=== PATIENT | male | born 1975 | race Caucasian/White ===

== ENCOUNTER 2024-12-11 11:31 | Emergency (ER) | payer OTHER, SELFPAY ==
[2024-12-11] VITALS (14 sets, daily range): BP systolic 126–166; BP diastolic 78–103; BMI 23.1
[2024-12-11] MEDS: DILAUDID 1 MG IV (11:44)
[2024-12-11] MEDS: ZOFRAN 4 MG IV (11:46)
--- NOTE | 2024-12-11 11:54 | ED.MUSCINJ ---
HPI-Injury
General
Chief Complaint: Musculo-Skeletal Complaint
Source: patient and spouse
Exam Limitations: none
Time Seen by Provider: 12/11/24 11:40
Nursing documentation reviewed up to this point in time: agreed with
History of Present Illness-Injury
Initial Injury comments:
Note:
CHIEF COMPLAINT(S)
Right shoulder pain with suspected dislocation.
HISTORY OF PRESENT ILLNESS
The patient is a 49-year-old male who presented with complaints of right shoulder pain. He reports that the pain began after a recent incident where he was stacking a tarp and experienced an injury to his shoulder. The patient has a history of
previous shoulder dislocation, which occurred approximately 20 to 30 years ago. During this current episode, he attempted self-reduction of the shoulder, without success. The injury occurred earlier today while he was engaged in physical work.
SOCIAL HISTORY
The patient occasionally uses marijuana.
PHYSICAL EXAM
- General: Patient appears to be in mild distress due to shoulder pain.
- Musculoskeletal: Normal range of motion in all extremities except the right shoulder. There is an anterior deformity at the right glenohumeral joint. The patient is holding the right arm due to pain.
PLAN
The plan is to attempt shoulder reduction. If non-sedative manipulation is unsuccessful, proceed with sedation to facilitate reduction of the shoulder dislocation.
DIFFERENTIAL DIAGNOSIS
The Differential Diagnosis includes, in no particular order and is not limited to:
1. Anterior shoulder dislocation
2. Rotator cuff tear
3. Shoulder sprain
4. Glenoid labrum injury
5. Acromioclavicular joint separation
6. Clavicle fracture
7. Proximal humerus fracture
8. Biceps tendon rupture
9. Shoulder osteoarthritis
10. Subacromial bursitis
CARE-UPDATE
12/11/24 - 12:54
Patient was sedated with 100 mg of propofol and tolerated the procedure well. Post-procedure, the reduction appears satisfactory as confirmed by a post-reduction x-ray, indicating successful alignment. Neural structures remain unaffected
post-procedure.
Disposition:
SUMMARY OF ENCOUNTER
The patient, a 49-year-old male, presented to the emergency department with complaints of right shoulder pain following an injury sustained while stacking a tarp. He has a history of shoulder dislocation approximately 20-30 years prior. During this
incident, self-reduction attempts were unsuccessful. Physical examination showed an anterior deformity at the right glenohumeral joint, indicative of an anterior shoulder dislocation. The patient was sedated with 100 mg of propofol, following which
a successful shoulder reduction was achieved, as confirmed by a post-reduction X-ray.
DISPOSITION
Discharge.
ASSESSMENT
Anterior shoulder dislocation.
EMERGENCY TREATMENTS ADMINISTERED
Sedation with 100 mg of propofol.
REASSESSMENT
Post-reduction, X-ray confirmed satisfactory alignment, neural structures remained unaffected, and the patient tolerated the procedure well.
PLAN
Refer patient for follow-up with orthopedics to ensure proper recovery and management of the shoulder dislocation.
INDEPENDENT REVIEW OF LABS AND INTERPRETATION OF TESTS
My independent review of the X-ray confirms satisfactory alignment post-reduction of the shoulder dislocation.
PROCEDURES
Sedation with propofol and closed reduction of right shoulder dislocation.
PATIENT EDUCATION AND COUNSELING
The patient was educated about the potential for further injury and instructed on the importance of follow-up with orthopedics to prevent future dislocations. The patient was advised to avoid shoulder strain and to follow up for physical therapy as
needed.
FOLLOW-UP INSTRUCTIONS
The patient should follow up with orthopedics for post-reduction care and management.
MEDICAL DECISION MAKING
-Complexity of Data Reviewed: Chronic conditions affecting care due to the patients past history of shoulder dislocation. Differential diagnoses considered were anterior shoulder dislocation, rotator cuff tear, shoulder sprain, glenoid labrum
injury, AC joint separation, clavicle fracture, proximal humerus fracture, biceps tendon rupture, shoulder osteoarthritis, and subacromial bursitis.
-Data:
Category 1
My independent interpretation of X-ray confirmed successful alignment post reduction.
-Risk:
Consideration of Admission/Observation: Escalation of care including admission/observation was considered given the complexity and risk of the patients presenting complaint. However, ultimately I feel the patient is safe for outpatient management
with close follow-up. Reasoning: Work-up reassuring, does not reveal any acute life/organ threatening processes, patients symptoms well controlled upon reevaluation, reexamination is reassuring, vitals are stable, patient agreeable with discharge,
reliable for follow-up.
DIAGNOSIS
Anterior shoulder dislocation (ICD-10: S43.01XA).
Phy Exam
Physical Exam
Physical Exam:
.
Injury Course
Orders/Labs/Results
Orders:
Orders
12/11/24 11:43
HYDROmorphone [Dilaudid] 1 mg .ROUTE .STK-MED ONE
12/11/24 11:44
HYDROmorphone [Dilaudid] 1 mg IV NOW STA
12/11/24 11:45
Ondansetron Injectable [Zofran] 4 mg .ROUTE .STK-MED ONE
12/11/24 11:46
Ondansetron Injectable [Zofran] 4 mg IV NOW STA
12/11/24 11:53
Shoulder, Right 2 Views [CR Shoulder - Right Min 2 View] Urgent
Comment:
Reason For Exam: right shoulder pain, deformity
12/11/24 11:56
ASA Classification Routine
Propofol [Diprivan] 100 mg IV NOW STA
12/11/24 12:39
CR Shoulder - Right Min 2 View Urgent
Comment: portable
Reason For Exam: Post reduction
Procedures
Moderate Sedation
ASA Risk Score: Class I
Chart and allergies reviewed: Yes
Consent for anesthesia obtained: Yes
Time out completed (validating right patient & procedure): Yes
Moderate Sedation Start Time(when first medication is given): 12:35
History of difficult intubation: Yes
Airway free of obstruction: Yes
Patient has a gag reflex: Yes
Patient is able to open mouth: Yes
Patient has no dentures: Yes
Patient has no loose teeth: Yes
Medication administered by Provider during Moderate Sedation: IV Propofol (mg)
Total dose administered: 100
Time drug administered: 12:35
Moderate Sedation Procedure End Time: 12:45
Joint/Fracture Reduction
Right Anterior Shoulder:
Indication for procedure:: dislocation
Procedure completed by: Angie/Kavya
Consent form signed: Yes
Joint reduced: with anesthesia sedation
Anesthesia/sedation: Moderate sedation
Injury was: closed
Further treatement: needs re-check only
Post reduction exam: stable
Capillary Refill: normal
Normal distal neurovascular exam?: Yes
Peripheral Pulses: radial (right): 4+ and femoral (left): 4+
*Pulse Oximetry
SaO2: 98
Oxygen Mode of Delivery: Room air
Patient hypoxic: no
*Critical Care Note
Total Time (30-74mins, 75-104mins- exclusive of procedures): Not Applicable
ED Attending Note
-
Portions of this chart may have been created with voice recognition software.� Occasional wrong word or��sound alike� substitutions may have occurred due to the inherent limitations of voice recognition software.
Discharge Plan
Departure
Patient Disposition: Home (Routine Discharge)
Date of Disposition: 12/11/24
Time of Disposition: 13:01
Patient with high blood pressure during this ER visit?: Yes
Condition: Good
Discharge Problem:
Anterior dislocation of right shoulder
Instructions: Shoulder Dislocation (DC), MODERATE SEDATION ADULT, BLOOD PRESSURE
Referrals:
Mariah Chowdary DO [Family Provider, Family Practice]
Edwardo Barney MD [Active, Orthopedics] - Call in 1-3 days for appt
Interventions
Interventions:
*Risk Screen - Suicide Last Done: 12/11/24 11:33
*General Assessment Last Done: 12/11/24 11:33
*Neglect/Abuse Screening Last Done: 12/11/24 11:33
*ED- Fall Risk Assessment Last Done: 12/11/24 11:33
*ED COVID-19 Vaccine History Last Done: 12/11/24 11:33
ED-Musculoskeletal Assessment Last Done: 12/11/24 11:33
Discharge Date and Time
Print Language: [place]
== END 2024-12-11 13:30 | disposition home or self-care (01) ==
LOC: EMR 11:31
PROVIDERS: EMERGENCY PHYSICIAN Emergency Medicine; FAMILY PHYSICIAN Family Medicine
DX: S43.014A Anterior dislocation of right humerus, initial encounter (principal); X58.XXXA Exposure to other specified factors, initial encounter; F12.90 Cannabis use, unspecified, uncomplicated
CPT/HCPCS: 99283; 23650; 99152; 96374; 96375; 73030

== ENCOUNTER → 2025-02-05 13:48 | Outpatient (REF) | payer OTHER, SELFPAY | LOC: RAD 13:48 | PROVIDERS: ATTENDING PHYSICIAN Physician Assistant; FAMILY PHYSICIAN Family Medicine | DX: S05.50XA Penetrating wound with foreign body of unspecified eyeball, initial encounter (principal); M79.5 Residual foreign body in soft tissue | CPT/HCPCS: 70030 ==